=== PATIENT | male | born 2000 | race Caucasian/White ===

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

== ENCOUNTER 2023-07-28 01:24 | Observation (INO) | payer BC ==
--- NOTE | 2023-07-28 01:45 | ED ---
General Adult HPI - General Chief complaint: Urogenital Stated complaint: Testicular pain Time Seen by Provider: 07/28/23 01:32 Source: patient Mode of arrival: ambulatory Limitations: no limitations - History of Present Illness Initial comments: Dictation was produced using [employer] dictation software. please excuse any grammatical, word or spelling errors. Chief Complaint: 22-year-old male presents emergency department for acute onset right testicular pain History of Present Illness: 22-year-old male presents to the emergency dep artment right-sided testicular pain. 7 years ago patient of left-sided testicular torsion. Bilateral or complex ease. 1 hour 30 minutes prior to arrival he started to have severe right-sided scrotal pain that felt like his testicular torsion. Denies any dysuria. He did have some nausea and vomiting also pain in his right lower quadrant. Did complain of some mild fevers. Denies any history of appendectomy. The ROS documented in this emergency department record has been reviewed and confirmed by me. Those systems with pertinent positive or negative responses have been documented in the HPI. All other systems are other negative and/or noncontributory. - Related Data Home Medications Medication Instructions Recorded Confirmed Albuterol Inhaler [Ventolin Hfa 2 puff INHALATION Q4HR PRN 12/01/15 12/30/18 Inhaler] Allergies Allergy/AdvReac Type Severity Reaction Status Date / Time No Known Allergies Allergy Verified 12/30/18 06:13 Review of Systems ROS Statement: Those systems with pertinent positive or pertinent negative responses have been documented in the HPI. ROS Other: All systems not noted in ROS Statement are negative. Past Medical History Past Medical History: Asthma, GERD/Reflux Additional Past Medical History / Comment(s): past hx acid reflux, fx nose 12/19/18 playing basketball, hx fx rt foot History of Any Multi-Drug Resistant Organisms: None Reported Past Surgical History: Adenoidectomy, Ear Surgery, Tonsillectomy Additional Past Surgical History / Comment(s): surgery for twisted testicle, mary ellen myringatomy with tubes.X3 Past Anesthesia/Blood Transfusion Reactions: Motion Sickness Past Psychological History: No Psychological Hx Reported Smoking Status: Vaper Past Alcohol Use History: None Reported Past Drug Use History: None Reported - Past Family History Sister(s) Additional Family Medical History / Comment(s): NF!- neufibromatosis Mother Family Medical History: No Reported History General Exam - General Exam Comments Initial Comments: PHYSICAL EXAM: General Impression: Alert and oriented x3, not in acute distress HEENT: Normocephalic atraumatic, extra-ocular movements intact, pupils equal and reactive to light bilaterally, mucous membranes moist. Cardiovascular: Heart regular rate and rhythm Chest: Able to complete full sentences, no retractions, no tachypnea Abdomen: abdomen soft, tenderness to the right lower quadrant, slightly worse on rebound, non-distended, no organomegaly Musculoskeletal: Pulses present and equal in all extremities, no peripheral edema Motor: no focal deficits noted Neurological: CN II-XII grossly intact, no focal motor or sensory deficits noted Skin: Intact with no visualized rashes Psych: Normal affect and mood : Mildly edematous right testicle, no scrotal abnormalities Limitations: no limitations Course Vital Signs 07/28/23 07/28/23 07/28/23 01:26 01:39 02:25 Temperature 97.9 F Pulse Rate 52 L 48 L Respiratory 20 17 Rate Blood Pressure 150/85 152/106 145/93 O2 Sat by Pulse 100 100 Oximetry 07/28/23 02:51 Temperature Pulse Rate 69 Respiratory 17 Rate Blood Pressure 143/98 O2 Sat by Pulse 99 Oximetry - Reevaluation(s) Reevaluation #1: 07/28/23 02:32 Case is discussed with Dr. Valero at 136am. It was discussed that patients presentation consistent with acute testicular torsion however according to operative note patient has history of bilateral orchipexy making right testicular torsion unlikely. US ordered. I was notified by US that there was no color doppler flow to the right testiccle. Dr. Henderson was spoken to againat 209pm. He intially requested NM testicle study be ordered however it was explained to Dr. Blevins that imaging and results may be significantly delayed due to NM tech needing to be called in, inability to perform scan due to shortage of nuclear substrate, and even further delay given currently long time for radiology reads. Dr. Blevins states he will come in to see the patient. 07/28/23 03:10 Reevaluation #2: 07/28/23 03:11 Patient evaluated at bedside by urology. Will be going to the operating room urgently for scrotal expiration Medical Decision Making - Medical Decision Making Was pt. sent in by a medical professional or institution ([facility], [employer], urgent care, hospital, or intermediate...) When possible be specific @ -No Did you speak to anyone other than the patient for history (EMS, parent, family, police, friend...)? What history was obtained from this source @ -No Did you review nursing and triage notes (agree or disagree)? Why? @ -I reviewed and agree with nursing and triage notes Were old charts reviewed (outside hosp., previous admission, EMS record, old EKG, old radiological studies, urgent care reports/EKG's, intermediate records)? Report findings @ -See above Differential Diagnosis (chest pain, altered mental status, abdominal pain women, abdominal pain men, vaginal bleeding, musculoskeletal, weakness, fever, dyspnea, syncope, headache, dizziness, GI bleed, back pain, seizure, CVA, palpatations, mental health)? @ -Differential Abdominal Pain Men: Appendicitis, cholecystitis, diverticulosis, ischemic bowel, pancreatitis, hepatitis, UTI, gastroenteritis, AAA, incarcerated hernia, bowel obstruction, constipation, inflammatory bowel, hepatitis, peptic ulcer disease, splenic infarction, perforated viscus, testicular torsion, this is not meant to be an all-inclusive list EKG interpreted by me (3pts min.). @ -None done X-rays interpreted by me (1pt min.). @ -None done CT interpreted by me (1pt min.). @ -None done U/S interpreted by me (1pt. min.). @ -No color Doppler flow to the right testicle What testing was considered but not performed or refused? (CT, X-rays, U/S, labs)? Why? @ -None What meds were considered but not given or refused? Why? @ -None Did you discuss the management of the patient with other professionals (professionals i.e. [facility] Medina, [employer], lab, RT, psych nurse, social media sr strategy manager, industrial waste treatment technician, teacher, employee service officer, case advocate)? Give summary @ -see above Was smoking cessation discussed for >3mins.? @ -No Was critical care preformed (if so, how long)? @ -yes, 33 minutes Were there social determinants of health that impacted care today? How? (Homelessness, low income, unemployed, alcoholism, drug addiction, transportation, low edu. Level, literacy, decrease access to med. care, correction, rehab)? @ -No Was there de-escalation of care discussed even if they declined (Discuss DNR or withdrawal of care, Hospice)? DNR status @ -No What co-morbidities impacted this encounter? (DM, HTN, Smoking, COPD, CAD, Cancer, CVA, ARF, Chemo, Hep., AIDS, mental health diagnosis, sleep apnea, morbid obesity)? @ -None Was patient admitted / discharged? Hospital course, mention meds given and route, prescriptions, significant lab abnormalities, going to OR and other pertinent info. @ -Old male presents emergency Department with acute onset testicular pain. Vital signs stable. Patient acute distress secondary to pain. Clinical presentation concerning for testicular torsion despite having had history of bilateral x-rays. Urology was contacted. Ultrasound performed showing poor f low to the testicle. Patient will be disposition to operating room for scrotal expiration. Undiagnosed new problem with uncertain prognosis? @ -[No] Drug Therapy requiring intensive monitoring for toxicity (Heparin, Nitro, Insulin, Cardizem)? @ -[No] Were any procedures done? @ -[No] Diagnosis/symptom? Acute, or Chronic, or Acute on Chronic? Uncomplicated (without systemic symptoms) or Complicated (systemic symptoms)? @ -Acute Right testicular torsion Side effects of treatment? @ -[No] Exacerbation, Progression, or Severe Exacerbation? @ -[No] Poses a threat to life or bodily function? How? (Chest pain, USA, MD, pneumonia, PE, COPD, DKA, ARF, appy, cholecystitis, CVA, Diverticulitis, Homicidal, Suicidal, threat to staff... and all critical care pts) @ -yes - Lab Data Result diagrams: 07/28/23 01:39 07/28/23 01:39 Lab Results 07/28/23 07/28/23 Range/Units 01:39 01:39 WBC 7.4 (4.0-11.0) k/uL RBC 5.35 (4.30-5.90) m/uL Hgb 15.9 (13.0-17.5) gm/dL Hct 46.6 (39.0-53.0) % MCV 87.0 (80.0-100.0) fL MCH 29.8 (25.0-35.0) pg MCHC 34.2 (31.0-37.0) g/dL RDW 12.0 (11.5-15.5) % Plt Count 169 (150-450) k/uL MPV 8.2 Neutrophils % 53 % Lymphocytes % 35 % Monocytes % 6 % Eosinophils % 2 % Basophils % 1 % Neutrophils # 3.9 (1.3-7.7) k/uL Lymphocytes # 2.6 (1.0-4.8) k/uL Monocytes # 0.5 (0-1.0) k/uL Eosinophils # 0.2 (0-0.7) k/uL Basophils # 0.1 (0-0.2) k/uL Sodium 139 (137-145) mmol/L Potassium 3.6 (3.5-5.1) mmol/L Chloride 107 (98-107) mmol/L Carbon Dioxide 23 (22-30) mmol/L Anion Gap 9 mmol/L BUN 15 (9-20) mg/dL Creatinine 0.81 (0.66-1.25) mg/dL Est GFR (CKD-EPI)AfAm >90 (>60 ml/min/1.73 sqM) Est GFR (CKD-EPI)NonAf >90 (>60 ml/min/1.73 sqM) Glucose 121 H (74-99) mg/dL Calcium 9.3 (8.4-10.2) mg/dL Disposition Clinical Impression: Testicular torsion Disposition: ADMITTED IP TO THIS [facility] Condition: Serious Referrals: Rex Bingham MD [Primary Care Provider] - 1-2 days Decision Time: 03:22
[2023-07-28 01:53] LABS: Basophils # (A) 0.1 k/uL (0-0.2); Basophils % (A) 1 %; Eosinophils # (A) 0.2 k/uL (0-0.7); Eosinophils % (A) 2 %; HCT 46.6 % (39.0-53.0); HGB 15.9 gm/dL (13.0-17.5); Lymphocytes # (A) 2.6 k/uL (1.0-4.8); Lymphocytes % (A) 35 %; MCH 29.8 pg (25.0-35.0); MCHC 34.2 g/dL (31.0-37.0); Mean Platelet Volume 8.2; Monocytes # (A) 0.5 k/uL (0-1.0); Monocytes % (A) 6 %; Neutrophils # (A) 3.9 k/uL (1.3-7.7); Neutrophils % (A) 53 %; Platelet Count 169 k/uL (150-450); RBC 5.35 m/uL (4.30-5.90); WBC 7.4 k/uL (4.0-11.0)
[2023-07-28] MEDS: MORPHINE SULFATE 4 MG/ML SYRINGE IVP STA (02:12)
[2023-07-28 02:13] LABS: African American GFR (CKD) >90 (>60 ml/min/1.73 sqM); Anion Gap 9 mmol/L; Blood Urea Nitrogen 15 mg/dL (9-20); Calcium 9.3 mg/dL (8.4-10.2); Carbon Dioxide 23 mmol/L (22-30); Chloride 107 mmol/L (98-107); Glucose 121 mg/dL (74-99); Non-African American GFR(CKD) >90 (>60 ml/min/1.73 sqM); Potassium 3.6 mmol/L (3.5-5.1); Sodium 139 mmol/L (137-145)
--- NOTE | 2023-07-28 02:40 | US ---
EXAM: US Scrotum CLINICAL HISTORY: ITS.REASON US Reason: testicular pain. Right testicular pain radiating to groin. Hx of left testicular torsion in 2016 with surgical intervention. Patient states no injury. TECHNIQUE: Real-time ultrasound of the scrotum with color Doppler and image documentation. COMPARISON: US Scrotum dated 12/01/15 FINDINGS: Right testicle: 4.6 x 4.0 x 2.6 cm. Absent blood flow in the right testicle. Left testicle: 4.1 x 4.1 x 2.2 cm. Normal blood flow without evidence of left testicular torsion. Epididymides: Right epididymis 1.3 cm. Left epididymis 1.0 cm. Left epididymal head cyst 1.6 cm. Scrotum: Small right hydrocele. Inguinal canal: Query right inguinal hernia. IMPRESSION: 1. Absent blood flow in the right testicle. Worrisome for RIGHT testicular torsion. 2. Left epididymal head cyst 1.6 cm. 3. Query right inguinal hernia. <MYCVCSECTION> Communications: 07/28/23 02:40 Call Doctor Regarding Torsion, ovarian or testicular, called Dr. Reyes on 07/28 02:40 (-05:00)
[2023-07-28] MEDS: HYDROmorphone 1 MG/ML 1 ML SYRINGE IVP STA (02:52)
--- NOTE | 2023-07-28 03:17 | P.GSHP ---
History of Present Illness H&P Date: 07/28/23 Chief Complaint: Right orchalgia The patient is a 22-year-old white male who presented in November 2015 with left testicular torsion. He underwent detorsion with bilateral orchiopexy. Just before midnight, he experienced acute onset of right testicular pain which was similar to the pain he experienced when he had torsion in 2016. He presented to the ER for evaluation. He experienced chills on the way to the ER, but denies fever. Scrotal ultrasound shows absent flow to the right testicle. - Constitutional Constitutional: Reports chills, Denies fever - Genitourinary (Male) Genitourinary: Reports testicular pain, Denies dysuria, Denies hematuria Past Medical History Past Medical History: Asthma, GERD/Reflux Additional Past Medical History / Comment(s): past hx acid reflux, fx nose 12/19/18 playing basketball, hx fx rt foot History of Any Multi-Drug Resistant Organisms: None Reported Past Surgical History: Adenoidectomy, Ear Surgery, Tonsillectomy Additional Past Surgical History / Comment(s): surgery for twisted testicle, mary ellen myringatomy with tubes.X3 Past Anesthesia/Blood Transfusion Reactions: Motion Sickness Past Psychological History: No Psychological Hx Reported Smoking Status: Vaper Past Alcohol Use History: None Reported Past Drug Use History: None Reported - Past Family History Sister(s) Additional Family Medical History / Comment(s): NF!- neufibromatosis Mother Family Medical History: No Reported History Medications and Allergies Home Medications Medication Instructions Recorded Confirmed Type Albuterol Inhaler [Ventolin Hfa 2 puff INHALATION Q4HR PRN 12/01/15 12/30/18 History Inhaler] Allergies Allergy/AdvReac Type Severity Reaction Status Date / Time No Known Allergies Allergy Verified 12/30/18 06:13 Surgical - Exam Vital Signs Temp Pulse Resp BP Pulse Ox 97.9 F 52 L 20 150/85 100 07/28/23 01:07/28/23 01:07/28/23 01:07/28/23 01:07/28/23 01:26 - General well developed, well nourished, moderate distress - Respiratory normal respiratory effort - Genitourinary Normal phallus, normal urethral meatus. The scrotum and left testicle are palpably normal. The right testicle is slightly larger than the left, and is very tender to palpation. Orientation of the testicle appears normal, though the testicle is somewhat high riding. Results - Labs 07/28/23 01:39 07/28/23 01:39 Abnormal Lab Results - Last 24 Hours (Table) 07/28/23 Range/Units 01:39 Glucose 121 H (74-99) mg/dL Diabetes panel 07/28/23 Range/Units 01:39 Sodium 139 (137-145) mmol/L Potassium 3.6 (3.5-5.1) mmol/L Chloride 107 (98-107) mmol/L Carbon Dioxide 23 (22-30) mmol/L BUN 15 (9-20) mg/dL Creatinine 0.81 (0.66-1.25) mg/dL Glucose 121 H (74-99) mg/dL Calcium 9.3 (8.4-10.2) mg/dL Calcium panel 07/28/23 Range/Units 01:39 Calcium 9.3 (8.4-10.2) mg/dL Pituitary panel 07/28/23 Range/Units 01:39 Sodium 139 (137-145) mmol/L Potassium 3.6 (3.5-5.1) mmol/L Chloride 107 (98-107) mmol/L Carbon Dioxide 23 (22-30) mmol/L BUN 15 (9-20) mg/dL Creatinine 0.81 (0.66-1.25) mg/dL Glucose 121 H (74-99) mg/dL Calcium 9.3 (8.4-10.2) mg/dL Adrenal panel 07/28/23 Range/Units 01:39 Sodium 139 (137-145) mmol/L Potassium 3.6 (3.5-5.1) mmol/L Chloride 107 (98-107) mmol/L Carbon Dioxide 23 (22-30) mmol/L BUN 15 (9-20) mg/dL Creatinine 0.81 (0.66-1.25) mg/dL Glucose 121 H (74-99) mg/dL Calcium 9.3 (8.4-10.2) mg/dL Assessment and Plan (1) Right testicular torsion Current Visit: Yes Status: Acute Code(s): N44.00 - TORSION OF TESTIS, UNSPECIFIED SNOMED Code(s): 23546998 Plan: The patient's history and scrotal ultrasound are consistent with right testicular torsion. Examination is somewhat less convincing. I discussed this with the patient and his mother. We discussed whether or not he should undergo scrotal exploration. I explained that if there is testicular torsion and he does not undergo scrotal exploration, he would lose that testicle. In view of this, he elects to undergo scrotal exploration but understands the possibility that he will be found not to have testicular torsion. Surgical risks were reviewed, including anesthesia, bleeding, infection, and testicular injury. He is also aware that an orchiectomy would be required if the testicle is necrotic, though this is not anticipated given that the onset of symptoms was approximately 3.5 hours ago. Time with Patient: Greater than 30
[2023-07-28] MEDS ORDERED: NALOXONE 0.4 MG/ML 1 ML VIAL IV PRN (03:22)
[2023-07-28] MEDS: SODIUM CHLORIDE 0.9% 1,000 ML IV SCH (03:33)
[2023-07-28] MEDS ORDERED: PROPOFOL 10 MG/ML 20 ML VIAL IV ONE (04:19)
[2023-07-28] MEDS ORDERED: fentaNYL (PF) 50 MCG/ML 2 ML AMP ONE (04:19)
[2023-07-28] MEDS ORDERED: MIDAZOLAM 2 MG/2 ML VIAL ONE (04:19)
[2023-07-28] MEDS ORDERED: SUCCINYLCHOLINE CHLORIDE 200 MG/10 ML VIAL IV ONE (04:19)
[2023-07-28] MEDS ORDERED: KETOROLAC 15 MG/ML 1 ML VIAL ONE (04:19)
[2023-07-28] MEDS: IV FLUID CONTINUATION 1,000 ML IV ONE (04:20)
[2023-07-28] MEDS: BUPIVACAINE (PF) 0.25% 30 ML VIAL SQ ONE ×2 (04:43)
--- NOTE | 2023-07-28 05:06 | P.OP ---
Date of Procedure: 07/28/23 Preoperative Diagnosis: Right testicular torsion Postoperative Diagnosis: Same Procedure(s) Performed: Right scrotal exploration with right testicular detorsion, right orchiopexy Anesthesia: BRIANA Surgeon: Diego Blevins Estimated Blood Loss (ml): 5 IV fluids (ml): 500 Pathology: none sent Condition: stable Disposition: PACU Indications for Procedure: The patient is a 22-year-old white male who presented in November 2015 with left testicular torsion. He underwent detorsion with bilateral orchiopexy. Just before midnight, he experienced acute onset of right testicular pain which was similar to the pain he experienced when he had torsion in 2016. He presented to the ER for evaluation. He experienced chills on the way to the ER, but denies fever. Scrotal ultrasound shows absent flow to the right testicle. Operative Findings: Right testicular torsion, 360 Description of Procedure: Patient was taken to the operating room and placed in the supine position. The external genitalia was prepped and draped sterilely. The scalpel was used to make a transverse right anterior scrotal incision. Bovie electrocautery was used to incise the underlying dartos fascia. The tunica vaginalis was incised, and the testicle was delivered through the wound. A strand of scar tissue connected the tunica albuginea to the tunica vaginalis, due to the previous orchiopexy, and this was divided. The testicle was examined and noted to be blue in color. There was evidence of testicular torsion, and detorsion was performed. It appeared that there was 360 of torsion. Following detorsion, the color of the right testicle promptly returned to normal. The appendix testis was excised. 0.5% Marcaine without epinephrine was injected into the right spermatic cord. 3-0 silk sutures were then used to perform an orchiopexy after returning the right testicle to the hemiscrotum. Sutures were placed medially, laterally, and inferiorly, incorporating a small bite of the tunica albuginea as well as the adjacent tunica vaginalis. Hemostasis was excellent. The dartos fascia was closed using 3-0 Vicryl suture in a running fashion. The skin was closed using 3-0 chromic suture in a running fashion. Marcaine was injected subcutaneously along the upper aspect of the incision. All sponge and needle counts were correct. Surgical fluffs were placed over the scrotum, followed by scrotal support. The patient tolerated the procedure well was taken to recovery in stable condition.
[2023-07-28 05:39] VITALS: RESP 16; TEMP 97.4
[2023-07-28 06:52] VITALS: BP 130/69; PULSE 66
--- NOTE | 2023-08-07 13:55 | P.DS ---
Providers Date of admission: 07/28/23 03:22 Expected date of discharge: 07/28/23 Attending physician: Diego Blevins Primary care physician: Rex Bingham - Discharge Diagnosis(es) (1) Right testicular torsion Status: Acute Hospital Course: The patient is a 22-year-old white male who presented in November 2015 with left testicular torsion. He underwent detorsion with bilateral orchiopexy. Just before midnight, he experienced acute onset of right testicular pain which was similar to the pain he experienced when he had torsion in 2016. He presented to the ER for evaluation. He experienced chills on the way to the ER, but denies fever. Scrotal ultrasound shows absent flow to the right testicle. He thus underwent scrotal exploration, where he was confirmed to have right testicular t orsion. Detorsion was performed, and the testicle quickly regained its normal color. A right orchiopexy was performed, and the patient was discharged home postoperatively. Procedures: Right scrotal exploration with right testicular detorsion, right orchiopexy. Patient Condition at Discharge: Good Plan - Discharge Summary New Discharge Prescriptions: New Ketorolac [Toradol] 10 mg PO Q6HR PRN #10 tab PRN Reason: Mild To Moderate Pain (1 - 6) Acetaminophen-Codeine 300-30mg [Tylenol w/codeine #3] 1 - 2 tab PO Q6H PRN #6 tablet PRN Reason: Severe Pain (Scale 7 To 10) No Action Albuterol Inhaler [Ventolin Hfa Inhaler] 2 puff INHALATION Q4HR PRN PRN Reason: wheezing Discharge Medication List Albuterol Inhaler [Ventolin Hfa Inhaler] 2 puff INHALATION Q4HR PRN 12/01/15 [History] Acetaminophen-Codeine 300-30mg [Tylenol w/codeine #3] 1 - 2 tab PO Q6H PRN #6 tablet 07/28/23 [Rx] Ketorolac [Toradol] 10 mg PO Q6HR PRN #10 tab 07/28/23 [Rx] Follow up Appointment(s)/Referral(s): Diego Blevins MD [STAFF PHYSICIAN] - 1 Week Rex Bingham MD [Primary Care Provider] - 1-2 days Patient Instructions/Handouts: *Surgery [facility] - (Anesthesia) Discharge Instructions Outpatient Surgery, Testicular Torsion (DC) Activity/Diet/Wound Care/Special Instructions: Diet as tolerated. May shower on 07/30/2022. No lifting or strenuous activity for 3 weeks YOU CAN RETURN TO WORK IF IT DOES NOT INVOLVE PHYSICAL ACTIVITY, PER DR. BLEVINS.. Discharge Disposition: HOME SELF-CARE
== END 2023-07-28 07:11 | disposition home or self-care (01) ==
LOC: EC 01:24 → INTOOBSV 03:22 → 6NMEDSUR 03:22 → UNDODISIN 07:11
PROVIDERS: ADMIT Urology; ATTEND Urology
PROC: 0VS90ZZ Reposition Right Testis, Open Approach (ICD-10-PCS; principal; 2023-07-28 04:20)
DX: N44.00 Torsion of testis, unspecified (principal); J45.909 Unspecified asthma, uncomplicated; F17.290 Nicotine dependence, other tobacco product, uncomplicated; Z98.890 Other specified postprocedural states
CPT/HCPCS: 96374; 96375; 99291; 36415; 80048; 85025; 93975; 76870; 54600; G0378; J2250; J0330; J2270; J3010; J1170; J1885; J2704; J0665